=== PATIENT | male | born 1990 | race Two or more races ===

== ENCOUNTER 2019-03-12 05:36 | Inpatient (IN) | payer MEDICAID, OTHER ==
[~2019-03-12] VITALS: Ht 165.1 cm; Wt 88.1 kg
[2019-03-14 13:04] VITALS: BP 125/82
== END 2019-03-14 18:40 | disposition home or self-care (01) | DRG 87 ==
LOC: EDBD 05:36 → ED 08:48 → MERGE 09:28 → EDIP 09:28 → CCU 09:29 → 4WST 03-13 12:25
PROVIDERS: ADMIT Hospitalist; ATTEND Hospitalist
DX: S06.6X0A Traumatic subarachnoid hemorrhage without loss of consciousness, initial encounter (principal); D72.829 Elevated white blood cell count, unspecified; F10.129 Alcohol abuse with intoxication, unspecified; F41.9 Anxiety disorder, unspecified; Y90.8 Blood alcohol level of 240 mg/100 ml or more; R73.9 Hyperglycemia, unspecified; R00.0 Tachycardia, unspecified; Y93.89 Activity, other specified; Y92.89 Other specified places as the place of occurrence of the external cause; Y99.8 Other external cause status; W18.30XA Fall on same level, unspecified, initial encounter
CPT/HCPCS: 36415; 70450; 70496; 71045; 80048; 80076; 80307; 81003; 82040; 85025; 85610; 85730; 87081; 93005; 99291; G0378; Q9967